=== PATIENT | male | born 1955 | race Caucasian/White ===

== ENCOUNTER 2017-10-03 12:52 | Emergency (ER) | payer BC ==
[2017-10-03 13:20] VITALS: BP 136/77
--- NOTE | 2017-10-06 18:58 | UC ---
Throat Pain/Nasal Cullen HPI - HPI Summary HPI Summary: 62 year old male presents with complains os sinus congestion - History of Current Complaint Chief Complaint: UCRespiratory Stated Complaint: SINUSES Time Seen by Provider: 10/03/17 13:10 Hx Obtained From: Patient Onset/Duration: Sudden Onset Severity: Moderate Pain Intensity: 0 Pain Scale Used: 0-10 Numeric Cough: Nonproductive - Allergies/Home Medications Allergies/Adverse Reactions: Allergies Allergy/AdvReac Type Severity Reaction Status Date / Time Amoxicillin Allergy Intermediate Hives Verified 10/03/17 13:15 PMH/Surg Hx/FS Hx/Imm Hx - Surgical History Surgical History: Yes Surgery Procedure, Year, and Place: PROSTATE BX - Social History Alcohol Use: None Substance Use Type: None Smoking Status (MU): Never Smoked Tobacco - Immunization History Most Recent Influenza Vaccination: 2017 Review of Systems Constitutional: Negative Skin: Negative Eyes: Negative ENT: Sinus Congestion, Sinus Pain/Tenderness Respiratory: Negative Cardiovascular: Negative Gastrointestinal: Negative Genitourinary: Negative Motor: Negative Neurovascular: Negative Musculoskeletal: Negative Neurological: Negative Psychological: Negative All Other Systems Reviewed And Are Negative: Yes Physical Exam Triage Information Reviewed: Yes Vital Signs: Initial Vital Signs Temp 36.6 C 10/03/17 13:15 Pulse 80 10/03/17 13:15 Resp 16 10/03/17 13:15 BP 136/77 10/03/17 13:15 Pulse Ox 97 10/03/17 13:15 Eye Exam: Normal ENT Exam: Normal ENT: Positive: Pharyngeal erythema, Nasal congestion, Nasal drainage Dental Exam: Normal Neck exam: Normal Neck: Positive: 1 Respiratory Exam: Normal Cardiovascular Exam: Normal Abdominal Exam: Normal Musculoskeletal Exam: Normal Neurological Exam: Normal Psychological Exam: Normal Skin Exam: Normal Throat Pain/Nasal Course/Dx - Differential Dx/Diagnosis Provider Diagnoses: sinusitis Discharge - Discharge Plan Condition: Stable Disposition: HOME Prescriptions: Levofloxacin TAB* [Levaquin TAB*] 500 mg PO DAILY #10 tab predniSONE TAB* [Deltasone TAB*] 40 mg PO DAILY #10 tab Patient Education Materials: Sinusitis (ED) Referrals: Alexey Alvarado MD [Primary Care Provider] -
== END 2017-10-03 13:47 | disposition home or self-care (01) ==
LOC: UCCORT 12:52
DX: J32.9 Chronic sinusitis, unspecified (principal); Z88.1 Allergy status to other antibiotic agents
CPT/HCPCS: 99212; G0463

== ENCOUNTER 2019-02-05 13:59 | Emergency (ER) | payer BC, OTHER ==
[2019-02-05 15:10] VITALS: BP 140/76
--- NOTE | 2019-02-05 15:32 | UC ---
General HPI - HPI Summary HPI Summary: 63-year-old male comes in with a chief complaint of feeling flushed and not feeling well. Had a sudden onset at about 10 AM this morning while he was in a meeting. Feels like his face is flushed. Also do very thirsty strength a lot of water is also urinating a lot. He did have some pain in his neck and upper shoulders. That's gone away and now he has some pain in his low back. Did not measure any fever. Other than the shoulder and back pain is not complaining of any myalgias. He has had upper respiratory tract sinusitis symptoms for about 2 -3 weeks. He has been having a lot of sinus pressure. He had not taken any new medication just prior to the symptoms. He does not have a history of diabetes. Does have a history of hypothyroidism. Patient does not believe this is his heart. - History of Current Complaint Chief Complaint: UCGeneralIllness Stated Complaint: SINUS/BILATERAL EAR PAIN Time Seen by Provider: 02/05/19 15:13 Pain Intensity: 0 - Allergy/Home Medications Allergies/Adverse Reactions: Allergies Allergy/AdvReac Type Severity Reaction Status Date / Time amoxicillin Allergy Intermediate Hives Verified 02/05/19 15:11 Home Medications: Home Medications guaiFENesin ER TAB [Mucinex*] 600 mg PO BID 02/05/19 [History Confirmed 02/05/19 ] PMH/Surg Hx/FS Hx/Imm Hx Previously Healthy: Yes Endocrine History: Hypothyroidism - Surgical History Surgical History: Yes Surgery Procedure, Year, and Place: PROSTATE BX - Family History Known Family History: Positive: Non-Contributory - Social History Alcohol Use: None Substance Use Type: None Smoking Status (MU): Never Smoked Tobacco - Immunization History Most Recent Influenza Vaccination: 2017 Review of Systems All Other Systems Reviewed And Are Negative: Yes Constitutional: Positive: Other - see hpi Skin: Positive: Other - see hpi Eyes: Positive: Negative ENT: Positive: Nasal Discharge, Sinus Congestion, Sinus Pain/Tenderness Respiratory: Positive: Negative. Negative: Shortness Of Breath Cardiovascular: Negative: Chest Pain Gastrointestinal: Positive: Negative Genitourinary: Positive: Frequency Motor: Positive: Negative Neurovascular: Positive: Negative Musculoskeletal: Positive: Other: - see hpi Neurological: Positive: Headache - face and b/l temples felt flushed with some pain Psychological: Positive: Negative Is Patient Immunocompromised?: No Physical Exam Triage Information Reviewed: Yes Appearance: Well-Appearing, No Pain Distress, Well-Nourished Vital Signs: Initial Vital Signs Temp 98.2 F 02/05/19 15:06 Pulse 84 02/05/19 15:06 Resp 16 02/05/19 15:06 BP 140/76 02/05/19 15:06 Pulse Ox 95 02/05/19 15:06 Vital Signs Reviewed: Yes Eye Exam: Normal Eyes: Positive: Conjunctiva Clear, Conjunctiva Inflamed ENT: Positive: Pharynx normal, TMs normal. Negative: Nasal drainage Neck exam: Normal Neck: Positive: Supple Respiratory: Positive: Lungs clear, Normal breath sounds, No respiratory distress Cardiovascular: Positive: RRR Abdomen Description: Positive: Nontender Bowel Sounds: Positive: Present Musculoskeletal Exam: Normal Musculoskeletal: Positive: Strength Intact, ROM Intact, No Edema, Other: - no calf tenderness Neurological Exam: Normal Neurological: Positive: Alert, Muscle Tone Normal Psychological Exam: Normal Psychological: Positive: Age Appropriate Behavior Skin Exam: Normal Diagnostics - EKG Cardiac Rate: NL - AT 1532 Cardiac Rhythm: Sinus: Normal - 80 BPM Ectopy: None ST Segment: Normal Course/Dx - Course Course Of Treatment: I do not see any ischemic changes on the EKG. I discussed the EKG with the patient. Patient does not have any chest pain. Overall his symptoms were primarily a flushing in the face in the temples and some pain in his upper shoulders and in his lower back. The pain in the shoulders is gone away the flushing is less than it was. The low back pain is mild. At this time we'll treat for sinusitis given several weeks of sinusitis symptoms. I let the patient know that if anything changes he gets any chest pain shorts of breath he feels ill that he should go the emergency department for further evaluation. - Diagnoses Provider Diagnosis: Flushing, Myalgia, Sinusitis Discharge - Sign-Out/Discharge Documenting (check all that apply): Patient Departure All imaging exams completed and their final reports reviewed: No Studies - Discharge Plan Condition: Stable Disposition: HOME Prescriptions: Azithromyxin SUZAN (NF) [Z-Suzan (Zithromax) 250 mg tabs #6] 2 tab PO .TODAY, THEN 1 DAILY #6 tab Patient Education Materials: Sinusitis (ED) Referrals: Alexey Alvarado MD [Primary Care Provider] - Additional Instructions: FOLLOW UP WITH YOUR DOCTOR FOR YOUR FLUSHING AND BODY ACHES. GO TO THE EMERGENCY DEPARTMENT FOR ANY WORSENING OF YOUR CONDITION; CHEST PAIN, SHORTNESS OF BREATH, YOU FEEL ILL OR ANY QUESTIONS OR CONCERNS. - Billing Disposition and Condition Condition: STABLE Disposition: Home
[2019-02-05 15:50] LABS: Influenza A Molecular NEGATIVE (Negative); Influenza B Molecular NEGATIVE (Negative)
[2019-02-05 20:14] LABS: ABS Basophils 0 10^3/ul (0-0.2); ABS Eosinophils 0.1 10^3/ul (0-0.6); ABS Lymphocytes 1.8 10^3/ul (1.0-4.8); ABS Monocytes 0.4 10^3/ul (0-0.8); ABS Neutrophils 4.1 10^3/ul (1.5-7.7); ABS Nucleated RBC 0 10^3/ul; Eosinophil % 1.3 %; Hematocrit 45 % (36-46); Hemoglobin 15.4 g/dL (14.0-18.0); Lymphocyte % 27.4 %; Mean Corpuscular HGB Conc 35 g/dL (31-36); Mean Corpuscular Hemoglobin 31 pg (27-31); Mean Corpuscular Volume 89 fL (80-94); Mean Platelet Volume 8.9 fL (7.4-10.4); Nucleated Red Blood Cells % 0; Platelet Count 226 10^3/uL (150-450); Red Blood Count 5.02 10^6 /uL (4.18-5.48); Red Cell Distribution Width 13 % (10.5-15); White Blood Count 6.4 10^3/uL (3.5-10.8)
[2019-02-05 20:19] LABS: Albumin 4.5 g/dL (3.2-5.2); Calcium 9.4 mg/dL (8.6-10.3); Potassium 4.1 mmol/L (3.5-5.0); Total Bilirubin 0.4 mg/dL (0.2-1.0)
[2019-02-05 20:25] LABS: Albumin/Globulin Ratio 2.3 (1-3); BUN/Creatinine Ratio 16.2 (8-20); EGFR Non-African American 76.9 (>60); Total Protein 6.5 g/dL (6.4-8.9)
[2019-02-05 20:47] LABS: TSH (Thyroid Stimulating Horm) 0.13 mcIU/mL (0.34-5.60)
--- NOTE | 2019-02-06 07:25 | UC ---
- Progress Note Progress Note: cbc cmp tsh all normal, no change Course/Dx - Diagnoses Provider Diagnoses: Flushing, Myalgia, Sinusitis Discharge - Sign-Out/Discharge Documenting (check all that apply): Post-Discharge Follow Up All imaging exams completed and their final reports reviewed: No Studies - Discharge Plan Condition: Stable Disposition: HOME Prescriptions: Azithromyxin SUZAN (NF) [Z-Suzan (Zithromax) 250 mg tabs #6] 2 tab PO .TODAY, THEN 1 DAILY #6 tab Patient Education Materials: Sinusitis (ED) Referrals: Alexey Alvarado MD [Primary Care Provider] - Additional Instructions: FOLLOW UP WITH YOUR DOCTOR FOR YOUR FLUSHING AND BODY ACHES. GO TO THE EMERGENCY DEPARTMENT FOR ANY WORSENING OF YOUR CONDITION; CHEST PAIN, SHORTNESS OF BREATH, YOU FEEL ILL OR ANY QUESTIONS OR CONCERNS. - Billing Disposition and Condition Condition: STABLE Disposition: Home
--- NOTE | 2019-02-06 07:31 | UC ---
- Progress Note Progress Note: note correction - pt with low TSH Pt should see follow-up PCP, Rosalia Villarreal for further testing of thyroid levels review of labs show record or low thyroid levels no active medication list noted kamryn 02/06/19 Course/Dx - Diagnoses Provider Diagnoses: Flushing, Myalgia, Sinusitis Discharge - Sign-Out/Discharge Documenting (check all that apply): Post-Discharge Follow Up All imaging exams completed and their final reports reviewed: No Studies - Discharge Plan Condition: Stable Disposition: HOME Prescriptions: Azithromyxin TERESO (NF) [Z-Tereso (Zithromax) 250 mg tabs #6] 2 tab PO .TODAY, THEN 1 DAILY #6 tab Patient Education Materials: Sinusitis (ED) Referrals: Alexey Alvarado MD [Primary Care Provider] - Additional Instructions: FOLLOW UP WITH YOUR DOCTOR FOR YOUR FLUSHING AND BODY ACHES. GO TO THE EMERGENCY DEPARTMENT FOR ANY WORSENING OF YOUR CONDITION; CHEST PAIN, SHORTNESS OF BREATH, YOU FEEL ILL OR ANY QUESTIONS OR CONCERNS. - Billing Disposition and Condition Condition: STABLE Disposition: Home
== END 2019-02-05 16:23 | disposition home or self-care (01) ==
LOC: UCCORT 13:59
DX: R23.2 Flushing (principal); M79.7 Fibromyalgia; J32.9 Chronic sinusitis, unspecified
CPT/HCPCS: 36415; 80053; 84443; 85025; 93005; 99212; G0463